=== PATIENT | female | born 1960 | race Caucasian/White ===

== ENCOUNTER 2018-09-21 11:01 | Outpatient (CLI) | payer OTHER | END 2018-09-21 11:02 | disposition home or self-care (01) | LOC: BICMAMMO 11:01 | PROVIDERS: ATTEND Family Medicine | DX: Z12.31 Encounter for screening mammogram for malignant neoplasm of breast (principal) | CPT/HCPCS: 77063; 77067 ==

== ENCOUNTER 2019-09-26 07:42 | Outpatient (CLI) | payer OTHER ==
--- NOTE | 2019-09-26 08:17 | MMO ---
Bilateral MAMMO Bilat Screen [facility]. CLINICAL HISTORY: Patient is 59 years old and is seen for screening. The patient has no family history of breast cancer. The patient has no personal history of cancer. VIEWS: The views performed were: bilateral craniocaudal with tomosynthesis and bilateral mediolateral oblique with tomosynthesis. FILMS COMPARED: The present examination has been compared to prior imaging studies performed at [facility] on 09/12/2015, 09/12/2016, 09/15/2017 and 09/21/2018. This study has been interpreted with the assistance of computer-aided detection. MAMMOGRAM FINDINGS: The breasts are heterogeneously dense, which could obscure a lesion on mammography. There are no suspicious masses, suspicious calcifications, or new areas of architectural distortion. IMPRESSION: THERE IS NO MAMMOGRAPHIC EVIDENCE OF MALIGNANCY. A ROUTINE FOLLOW-UP MAMMOGRAM IN 1 YEAR IS RECOMMENDED. THE RESULTS OF THIS EXAM WERE SENT TO THE PATIENT. ACR BI-RADS Category 1 - Negative MAMMOGRAPHY NOTE: 1. A negative mammogram report should not delay a biopsy if a dominant of clinically suspicious mass is present. 2. Approximately 10% to 15% of breast cancers are not detected by mammography. 3. Adenosis and dense breasts may obscure an underlying neoplasm. Reported by: RUIZ MONTEZ MD Electonically Signed: [id number]
== END 2019-09-26 07:43 | disposition home or self-care (01) ==
LOC: BICMAMMO 07:42
PROVIDERS: ATTEND Family Medicine
DX: Z12.31 Encounter for screening mammogram for malignant neoplasm of breast (principal)
CPT/HCPCS: 77063; 77067

== ENCOUNTER 2020-09-01 05:37 | Inpatient (IN) | payer OTHER ==
[2020-09-01] MEDS ORDERED: Piperacillin/Tazobactam 4.5 GM VIAL ONE (06:21)
[2020-09-01 06:47] LABS: #Basophils 0.1 thou/uL (0.0-0.2); #Eosinphils 0.5 thou/uL (0.0-0.7); #Monocytes 0.7 thou/uL (0.11-0.59); #Neutrophils 9.6 thou/uL (1.40-6.50); %Basophils 0.6 % (0.0-1.0); %Eosinophils 3.6 % (0.0-10.0); %Lymphocytes 15.9 % (21.0-51.0); %Monocytes 5.6 % (0.0-10.0); %Neutrophils 74.3 % (42.0-75.0); Hemoglobin 15.4 g/dL (12.0-16.0); Mean Corpuscular HGB CONC 32.8 g/dL (32.0-36.0); Mean Corpuscular Hemoglobin 27.3 pg (27.0-31.0); Mean Corpuscular Volume 83.2 fL (78.0-98.0); Mean Platelet Volume 7.3 fL (7.4-10.4); Platelet Count 320 thou/uL (130-400); Red Blood Cell (RBC) Count 5.64 mill/uL (4.20-5.40); White Blood Cell (WBC) Count 12.9 thou/uL (4.8-10.8)
[2020-09-01] MEDS ORDERED: Morphine 4 MG/ML VIAL ONE (06:54)
[2020-09-01 07:03] LABS: ALT (SGPT) 150 U/L (8-55); AST (SGOT) 117 U/L (5-34); Albumin 4.3 g/dL (3.4-4.8); Alkaline Phosphatase 107 U/L (40-110); Anion Gap 12 mmol/L (10-20); BUN (Urea Nitrogen) 13 mg/dL (9.8-20.1); Bilirubin, Total 0.6 mg/dL (0.2-1.2); Calc. Creatinine Clearance 0 mL/min (70-130); Calcium 9.3 mg/dL (7.8-10.44); Carbon Dioxide 26 mmol/L (23-31); Chloride 103 mmol/L (98-107); Estimated GFR-MDRD 57; Globulin 3.2 g/dL (2.4-3.5); Glucose 131 mg/dL (80-115); Potassium 4.4 mmol/L (3.5-5.1); Protein, Total 7.5 g/dL (6.0-8.3); Sodium 137 mmol/L (136-145)
[2020-09-01] MEDS ORDERED: Morphine 4 MG/ML VIAL SLOW IVP PRN ×4 (09:08→16:22)
--- NOTE | 2020-09-01 09:35 | CT ---
PRELIMINARY REPORT/DIRECT RADIOLOGY/EMERGENCY AFTER HOURS PROCEDURE: Receipt of this report by the clinical staff was confirmed with MAC COOLEY MD by James Mcconnell on Sep 01, 2020 06:18:00 CDT. Addendum electronically signed by Imani Mcconnell on September 01, 2020 6:23:26 AM CDT EXAM: CT Abdomen and Pelvis Without Intravenous Contrast CLINICAL HISTORY: ER 5... Patient here for evaluation secondary to lower abdominal pain. Pain is cram py. Had a hysterectomy transvaginally on Thursday. States that she started having lower abdominal pain on . Has only had very small bowel movements. Does have a Nolan in which is draining. Patien t denies any vaginal discharge TECHNIQUE: Axial computed tomography images of the abdomen and pelvis without intravenous contrast. CONTRAST: None. COMPARISON: None provided. FINDINGS: LUNG BASES: There is mild right basilar atelectasis or scarring. LIVER: Unremarkable. GALLBLADDER AND BILE DUCTS: Small stones are seen layering within the gallbladder. PANCREAS: Unremarkable. SPLEEN: Unremarkable. ADRENAL GLANDS: Unremarkable. KIDNEYS, URETERS, AND BLADDER: Nolan catheter is seen within the bladder. There is moderate bladder d istention. Question punctate nonobstructing calyceal calculus within the inferior aspect of the left kidney. There is mild left hydronephrosis, without discrete obstructing calculus. The right kidney is unremarkable. STOMACH AND BOWEL: There is sigmoid diverticulosis and mild perisigmoid stranding is seen, suspect ac [place] sigmoid diverticulitis. Small amount of free air are seen within the left inferior hemipelvis posterior inferior to the sigmo id colon on series 2, image 75, suspect microperforation. APPENDIX: No CT evidence for appendicitis. PERITONEUM: No free fluid. No free air. LYMPH NODES: No lymphadenopathy. REPRODUCTIVE: Prior hysterectomy. VASCULATURE: No aortic aneurysm. ABDOMINAL WALL AND SOFT TISSUES: Unremarkable. BONES: No fracture. Bilateral L5 pars defects are seen with grade 1 anterolisthesis of L5 on S1. Th ere is moderate bilateral foraminal narrowing at L5-S1. MISCELLANEOUS: There is no evidence of a loculated fluid collection. IMPRESSION: 1. Sigmoid diverticulosis with acute sigmoid diverticulitis and microperforation with small foci of f ree air within the left inferior lateral hemipelvis. No evidence of loculated fluid collection. 2. Mild left hydronephrosis, without discrete obstructing calculus. Punctate nonobstructing calculus noted within the left kidney. 3. Moderate distention of bladder, despite presence of Nolan catheter which may be clinically correla campos. 4. Cholelithiasis. 5. Bilateral L5 pars defects with grade 1 anterolisthesis of L5 and S1 and moderate bilateral forami nal narrowing at this level. ELECTRONICALLY SIGNED BY: Ebony Ferrara MD Sep 01, 2020 6:13:30 AM CDT FINAL REPORT CT ABDOMEN AND PELVIS WITHOUT CONTRAST: Inflammatory change involving the sigmoid colon on the left with extraluminal gas pockets in the left pelvis as noted on the preliminary report. No abscess or fluid collection. I am in agreement with the preliminary report. POS: THOMAS
[2020-09-01] MEDS ORDERED: Ondansetron ODT 8 MG TAB PO PRN (09:38)
[2020-09-01] MEDS ORDERED: Ondansetron PF 4 MG/2 ML Vial IVP PRN ×2 (09:39→16:22)
[2020-09-01] MEDS ORDERED: Ketorolac Tromethamine 30 MG/ML VIAL IVP PRN ×2 (09:41→16:25)
[2020-09-01] MEDS ORDERED: Ketorolac Tromethamine 30 MG/ML VIAL IVP SCH (09:45)
[2020-09-01 10:00] VITALS: BMI 23.0
[2020-09-01] MEDS: Piperacillin/Tazobactam 4.5 GM in Sodium Chloride 0.9% 100 ML IVPB SCH ×2 (12:20→18:13)
[2020-09-01] MEDS ORDERED: Lorazepam 2 MG/ML VIAL SLOW IVP PRN (16:22)
[2020-09-01] MEDS ORDERED: Acetaminophen 500 MG TAB PO PRN (16:25)
[2020-09-01] MEDS ORDERED: traMADol HCl 50 MG TAB PO PRN ×2 (16:25)
[2020-09-01] MEDS ORDERED: Lactated Ringer's 1,000 ML IV SCH (16:30)
--- NOTE | 2020-09-01 17:53 | HP ---
HISTORY OF PRESENT ILLNESS: Ebony Sarabia is a 60-year-old female, who on Thursday, four days ago, had a vaginal hysterectomy at [facility] by Dr. Hastings for vaginal prolapse. She was kept two days postoperatively due to urinary retention and was sent home with a Nolan, intending to see her earlier next week to remove the Nolan. Patient went home on , two days ago, but had increased pain last night, presented to our emergency room, where she was evaluated, noted to have a white count of 12 and hemoglobin 15. Basic metabolic profile normal. She underwent a CAT scan of the abdomen and pelvis revealing the focus of free-air, some inflammatory changes in the left sigmoid mesentery, and a markedly distended bladder despite having a Nolan catheter in place. The patient was admitted from the emergency room with diverticulitis. The patient's Nolan catheter has drained urine 500 since being here. She had 750 of urine in the bag on arrival to the surgical floor. Patient continues to complain of suprapubic and left lower quadrant pain. Her CAT scan revealed incidental cholelithiasis. It also revealed [id number] left hydronephrosis, which was thought secondary due to her bladder distention. ALLERGIES: NIACIN, SULFA, AND TRIMETHOPRIM. SOCIAL HISTORY: Tobacco use in years past, none currently. Alcohol, rarely. Patient is a full-time housewife. MEDICATIONS: 1. Cipro. 2. Hydrocodone. 3. Ditropan. 4. Ibuprofen. 5. Lisinopril. 6. Lupron. PAST SURGICAL HISTORY: Recent hysterectomy. Colonoscopy two years ago, she reports at this facility, but there is no record of that. PAST MEDICAL HISTORY: Hypertension. REVIEW OF SYSTEMS: Noncontributory. CARDIOPULMONARY: Noncontributory. PHYSICAL EXAMINATION: VITAL SIGNS: Height 5 feet 2 inches, 126 pounds, 23 BMI. 98.5, 74, and 150/77. HEAD, EARS, EYES, NOSE, AND THROAT: Unremarkable. LUNGS: Clear to auscultation. CARDIAC: Regular rate and rhythm. No murmur or gallop. ABDOMEN: Soft. Mild tenderness with guarding, left lower quadrant suprapubic. Abdomen otherwise soft. EXTREMITIES: Unremarkable. ASSESSMENT/PLAN: 1. Lower abdominal pain. I think this is unlikely diverticulitis. I have personally reviewed her CAT scan with the radiologist. We think the free-air seen on the CAT scan was secondary to recent transvaginal hysterectomy as is the fluid. Patient has no prior history of diverticulitis. She has urinary retention for some reason despite having a Nolan catheter in place and draining urine. At this point, we will have her nurse do a bladder scan. If this reveals significant urinary distention, we will replace her Nolan, might consider repeating her CAT scan of the pelvis and pending results along the way may obtain Urology consultation. 2. Recent hysterectomy. 3. Hypertension. 4. Incidental gallstones, asymptomatic. Follow for now. No indication for cholecystectomy. Job ID: [id number]
[2020-09-01 20:08] VITALS: BP 119/74; TEMP 98.2
--- NOTE | 2020-09-01 20:43 | DIS ---
DATE OF ADMISSION: 09/01/2020 DATE OF DISCHARGE: 09/01/2020 DISCHARGE DIAGNOSES: Urinary retention 950 mL from Nolan catheter obstruction due to thigh fixation device on discharge from [facility] after hysterectomy. PROCEDURE IN THIS HOSPITALIZATION: 1. CAT scan of the abdomen and pelvis. 2. Bladder scanning procedure. HISTORY: A 60-year-old female, four days ago, status post transvaginal hysterectomy, Dr. Hastings, [facility] on Thursday. He kept in extra two days due to urinary retention and discharged on . Began having pain late Thursday night, presented to our emergency room at [facility]. White count of 11,000, hemoglobin is stable. Basic metabolic profile normal, undergoing a CAT scan revealing changes read out initially as diverticulitis. This was due to some fluid in the pelvis and foci of air. The patient reports having had a colonoscopy 2 to 3 years prior, that was normal. No prior history of GI problems. No prior history of diverticulitis. CAT scan also revealed moderate left hydronephrosis. She also revealed tremendous bladder retention despite Nolan catheter being present. The patient was admitted from the emergency room, given intravenous antibiotics. By the time I saw her, she was still having quite a bit of pain in her lower abdomen. She had been placed on Zosyn. Review of her CAT scan revealed that she did not have diverticulitis, in fact the postoperative changes seen on the CAT scan were due to postoperative changes from her hysterectomy. We then proceeded to consider changing her Nolan catheter, but on inspection of the Nolan catheter, it was found to be kinked in the way that it was fixated to the right thigh with a fixation device. Once this was relieved, the patient had more than 950 mL of retained urine drained and her pain was resolved. The patient has been discharged to home to resume her home medications. She does not have a diverticulitis and will not be treated for that. She will resume her regular diet. She will follow up with and I have asked her to communicate with him the degree of urinary retention as it might influence how he soon takes out her Nolan catheter. Job ID: [id number]
[2020-09-01] MEDS ORDERED: Famotidine 20 MG TAB PO SCH (21:00)
[2020-09-01] MEDS ORDERED: Enoxaparin Sodium 40 MG/0.4 ML SYRINGE SC SCH (21:00)
[2020-09-02] MEDS ORDERED: Polyethylene Glycol 3350 17 GM Packet PO SCH (09:00)
== END 2020-09-01 19:50 | disposition home or self-care (01) | DRG 699 ==
LOC: ERS 05:37 → SURG A 08:07
PROVIDERS: ADMIT Specialist; ATTEND Specialist
DX: T83.098A Other mechanical complication of other urinary catheter, initial encounter (principal); N13.30 Unspecified hydronephrosis; R33.9 Retention of urine, unspecified; I10 Essential (primary) hypertension; Z90.710 Acquired absence of both cervix and uterus; Z88.1 Allergy status to other antibiotic agents; Z79.2 Long term (current) use of antibiotics; Z79.899 Other long term (current) drug therapy; Z88.2 Allergy status to sulfonamides; K80.20 Calculus of gallbladder without cholecystitis without obstruction
CPT/HCPCS: 74176; 80053; 85025; 96365; 96375; J1885; J2270; J2405; J2543; J3490